=== PATIENT | female | born 1955 | race African-American/Black ===

== ENCOUNTER 2022-07-11 05:53 | Inpatient (IN) | payer MEDICAID ==
[~2022-07-11] VITALS: Ht 167.6 cm; Wt 64.4 kg
[~2022-07-11 05:53] MED LIST: AMLO10TA80 PO; ASPI-1160 PO; ASPI-864 PO; FAMO20TA8 PO; GABA-532 PO; LEVO250T2 PO
[2022-07-11] MEDS ORDERED: MORPHINE SULFATE 4 MG/ML CPJ (NOT FOR IM USE) IV STA (06:13)
[2022-07-11] MEDS ORDERED: ONDANSETRON HCL 4MG/2ML INJ IV STA (06:13)
[2022-07-11] MEDS ORDERED: SODIUM CHLORIDE 0.9% 1,000 ML IV ONE (06:15)
[2022-07-11 06:44] LABS: BASOPHILS % 0.5 % (0.0-2.0); EOSINOPHILS % 2.7 % (0.0-5.0); HEMATOCRIT. 39.5 % (36.0-48.0); HEMOGLOBIN. 12.9 g/dL (12.0-16.0); LYMPHOCYTES % 28.1 % (20.0-50.0); MEAN CORPUSCULAR HEMOGLOBIN 27.4 pg (28.0-32.0); MEAN CORPUSCULAR VOLUME 84.3 fL (81.0-99.0); MONOCYTES % 6.1 % (2.0-8.0); NEUTROPHILS % 62.6 % (40.0-76.0); PLATELET 396 x1000/uL (130-400); RED BLOOD CELL COUNT 4.69 mill/uL (4.2-5.4); RED CELL DISTRIBUTION WIDTH 15.2 % (11.6-14.6)
[2022-07-11 06:54] LABS: CHLORIDE 104 mEq/L (98-107)
[2022-07-11 07:15] LABS: CLARITY URINE CLEAR (CLEAR); COLOR URINE YELLOW (YELLOW); KETONES URINE NEGATIVE (NEGATIVE); LEUKOCYTE ESTERASE URINE NEGATIVE (NEGATIVE); NITRITE URINE NEGATIVE (NEGATIVE); OCCULT BLOOD URINE NEGATIVE (NEGATIVE); PH URINE 7.5 (4.5-8.0); PROTEIN URINE NEGATIVE (NEGATIVE); SPECIFIC GRAVITY URINE 1.016 (1.005-1.030)
[2022-07-11] MEDS ORDERED: POTASSIUM CHLORIDE 10MEQ TABLET SR PO ONE (08:15)
[2022-07-11] MEDS ORDERED: IOHEXOL-300 100 ML BOTTLE ONE (08:29)
[2022-07-11] MEDS ORDERED: METRONIDAZOLE 500 MG PREMIX 100 ML IV ONE (10:15)
[2022-07-11] MEDS ORDERED: LORAZEPAM 0.5MG TABLET PO ONE (10:15)
[2022-07-11] MEDS ORDERED: LEVOFLOXACIN 750MG PREMIX 150 ML IV ONE (10:15)
[2022-07-11] MEDS ORDERED: MORPHINE SULFATE 4 MG/ML CPJ (NOT FOR IM USE) IV ONE (11:00)
[2022-07-11] MEDS ORDERED: IPRATROPIUM/ALBUTEROL 0.5-3(2.5)MG/3ML NEB HHN PRN (12:15)
[2022-07-11] MEDS ORDERED: CLONIDINE 0.1MG TABLET PO PRN (12:15)
[2022-07-11] MEDS ORDERED: NALOXONE HCL 0.4MG/ML VIAL IV PRN (12:30)
[2022-07-11] MEDS: MORPHINE SULFATE 2 MG/ML CPJ (NOT FOR IM USE) IV PRN ×2 (12:58→17:52)
[2022-07-11] MEDS ORDERED: FLUT1BLS9 IH (14:00)
[2022-07-11] MEDS ORDERED: ONDA4TAB50 PO (14:00)
[2022-07-11] MEDS ORDERED: BISACODYL 10MG SUPP PR NR (14:00)
[2022-07-11] MEDS ORDERED: SIMV10TA97 MT (14:00)
[2022-07-11] MEDS: METOCLOPRAMIDE HCL 10MG/2ML VIAL IV SCH ×2 (14:41→17:08)
[2022-07-11] MEDS: SORBITOL 70% SOLN 30ML PO SCH ×2 (14:41→21:15)
[2022-07-11] MEDS: AMLODIPINE 10MG TABLET PO SCH (16:19)
[2022-07-11] MEDS ORDERED: POTASSIUM CHLORIDE 20MEQ TABLET SR PO NR (16:45)
[2022-07-11 17:11] LABS: *AMPHETAMINES SCREEN URINE NEGATIVE (NEGATIVE); *BARBITURATES SCREEN URINE NEGATIVE (NEGATIVE); *BENZODIAZEPINES SCREEN URINE NEGATIVE (NEGATIVE); *COCAINE SCREEN URINE NEGATIVE (NEGATIVE); CANNABINOID URINE SCREEN PRESUMTIVE POSITIVE (NEGATIVE); METHADONE URINE SCREEN NEGATIVE (NEGATIVE); OPIATES URINE SCREEN NEGATIVE (NEGATIVE); PHENCYCLIDINE URINE SCREEN NEGATIVE (NEGATIVE)
[2022-07-11] MEDS: ONDANSETRON HCL 4MG/2ML INJ IV PRN (17:51)
[2022-07-11 18:49] LABS: TOTAL IRON BINDING CAPACITY 334 ug/dL (250-450)
[2022-07-11 19:02] LABS: FERRITIN 142 ng/mL (10-291)
[2022-07-11 19:15] LABS: VITAMIN B12 SERUM 621 pg/mL (211-911)
[2022-07-11 20:00] VITALS: BP 128/77
[2022-07-11 21:38] LABS: PROTHROMBIN TIME 11.2 sec (9.6-11.0)
[2022-07-12] VITALS: BP 150/80
[2022-07-12] MEDS: METOCLOPRAMIDE HCL 10MG/2ML VIAL IV SCH ×4 (00:40→19:05)
[2022-07-12] MEDS: SORBITOL 70% SOLN 30ML PO SCH ×4 (01:19→12:00)
[2022-07-12 04:00] VITALS: BP 128/73
[2022-07-12] MEDS ORDERED: NA PHOS,M-B/NA PHOS,DI-BA ENEMA 118ML PR NR (06:00)
[2022-07-12 07:51] LABS: BASOPHILS % 0.5 % (0.0-2.0); EOSINOPHILS % 1.2 % (0.0-5.0); HEMATOCRIT. 41.4 % (36.0-48.0); HEMOGLOBIN. 13.3 g/dL (12.0-16.0); LYMPHOCYTES % 23.3 % (20.0-50.0); MEAN CORPUSCULAR HEMOGLOBIN 27.2 pg (28.0-32.0); MEAN CORPUSCULAR VOLUME 84.5 fL (81.0-99.0); MONOCYTES % 5.5 % (2.0-8.0); NEUTROPHILS % 69.5 % (40.0-76.0); PLATELET 362 x1000/uL (130-400); RED CELL DISTRIBUTION WIDTH 15.3 % (11.6-14.6)
[2022-07-12 08:00] VITALS: BP 131/61
[2022-07-12 08:43] LABS: CHLORIDE 111 mEq/L (98-107)
[2022-07-12] MEDS: AMLODIPINE 10MG TABLET PO SCH (09:55)
[2022-07-12] MEDS: DEXT 5%/0.9% NACL KCL 20MEQ/L 1,000 ML IV SCH ×2 (11:25→20:00)
[2022-07-12 12:00] VITALS: BP 136/82
[2022-07-12 16:00] VITALS: BP 144/78
[2022-07-12] MEDS ORDERED: PNEUMOCOCCAL 23-VAL P-SAC VAC 0.5 ML IM ONE (16:45)
[2022-07-12 20:00] VITALS: BP 143/86
[2022-07-13] VITALS: BP 120/73
[2022-07-13 04:00] VITALS: BP 125/73
[2022-07-13] MEDS: METOCLOPRAMIDE HCL 10MG/2ML VIAL IV SCH ×4 (06:00→23:32)
[2022-07-13] MEDS: DEXT 5%/0.9% NACL KCL 20MEQ/L 1,000 ML IV SCH ×3 (06:00→19:51)
[2022-07-13 07:43] LABS: CHLORIDE 104 mEq/L (98-107)
[2022-07-13 07:44] LABS: BASOPHILS % 0.7 % (0.0-2.0); EOSINOPHILS % 2.6 % (0.0-5.0); HEMATOCRIT. 41.8 % (36.0-48.0); HEMOGLOBIN. 13.1 g/dL (12.0-16.0); LYMPHOCYTES % 39.4 % (20.0-50.0); MEAN CORPUSCULAR HEMOGLOBIN 27.1 pg (28.0-32.0); MEAN CORPUSCULAR VOLUME 86.2 fL (81.0-99.0); MONOCYTES % 9.7 % (2.0-8.0); NEUTROPHILS % 47.6 % (40.0-76.0); PLATELET 287 x1000/uL (130-400); RED BLOOD CELL COUNT 4.85 mill/uL (4.2-5.4); RED CELL DISTRIBUTION WIDTH 15.1 % (11.6-14.6)
[2022-07-13 08:00] VITALS: BP 165/92
[2022-07-13] MEDS: AMLODIPINE 10MG TABLET PO SCH (09:03)
[2022-07-13] MEDS: POLYETHYLENE GLYCOL 3350 (17GM) 1 DOSE PACK PO SCH (09:04)
[2022-07-13 12:00] VITALS: BP 162/82
[2022-07-13] MEDS: ACETAMINOPHEN 325MG TABLET PO PRN ×2 (13:14→17:29)
[2022-07-13] MEDS ORDERED: SORBITOL 70% SOLN 30ML PO NR (14:30)
[2022-07-13] MEDS ORDERED: METOCLOPRAMIDE HCL 10MG/2ML VIAL IV NR ×2 (14:30→15:00)
[2022-07-13] MEDS ORDERED: BISACODYL 5MG TABLET PO NR (14:30)
[2022-07-13 16:00] VITALS: BP 151/91
[2022-07-13] MEDS ORDERED: ALBUTEROL (0.083%) 2.5MG/3ML NEB HHN PRN (18:30)
[2022-07-13] MEDS ORDERED: IPRATROPIUM BROMIDE (0.02%) 0.5MG/2.5ML NEB HHN PRN (18:30)
[2022-07-13 20:00] VITALS: BP 130/85
[2022-07-14] VITALS: BP 119/67
[2022-07-14] MEDS: DEXT 5%/0.9% NACL KCL 20MEQ/L 1,000 ML IV SCH ×3 (02:28→20:09)
[2022-07-14] MEDS: DIPHENHYDRAMINE 50MG/ML VIAL IV PRN (03:33)
[2022-07-14 04:00] VITALS: BP 143/82
[2022-07-14] MEDS: METOCLOPRAMIDE HCL 10MG/2ML VIAL IV SCH ×2 (05:06→12:42)
[2022-07-14 08:00] VITALS: BP 128/76
[2022-07-14] MEDS: POLYETHYLENE GLYCOL 3350 (17GM) 1 DOSE PACK PO SCH (09:29)
[2022-07-14] MEDS: AMLODIPINE 10MG TABLET PO SCH (09:30)
[2022-07-14 10:41] LABS: BASOPHILS % 0.8 % (0.0-2.0); EOSINOPHILS % 1.9 % (0.0-5.0); HEMATOCRIT. 39.7 % (36.0-48.0); HEMOGLOBIN. 12.8 g/dL (12.0-16.0); LYMPHOCYTES % 39.5 % (20.0-50.0); MEAN CORPUSCULAR HEMOGLOBIN 27.5 pg (28.0-32.0); MEAN CORPUSCULAR VOLUME 85.2 fL (81.0-99.0); MEAN PLATELET VOLUME 9.7 fl (7.4-10.4); MONOCYTES % 8.2 % (2.0-8.0); NEUTROPHILS % 49.6 % (40.0-76.0); PLATELET 314 x1000/uL (130-400); RED BLOOD CELL COUNT 4.66 mill/uL (4.2-5.4); RED CELL DISTRIBUTION WIDTH 14.7 % (11.6-14.6)
[2022-07-14 11:26] LABS: CHLORIDE 111 mEq/L (98-107)
[2022-07-14 12:00] VITALS: BP 140/62
[2022-07-14 16:00] VITALS: BP 138/72
[2022-07-14] MEDS ORDERED: METOCLOPRAMIDE HCL 10MG/2ML VIAL IV NR ×2 (16:30→20:30)
[2022-07-14] MEDS ORDERED: BISACODYL 5MG TABLET PO NR ×2 (16:30→20:30)
[2022-07-14] MEDS ORDERED: SORBITOL 70% SOLN 30ML PO NR ×2 (17:00→21:00)
[2022-07-14] MEDS: ONDANSETRON HCL 4MG/2ML INJ IV PRN (21:24)
[2022-07-15] VITALS: BP 138/95
[2022-07-15 03:03] LABS: CHLORIDE 110 mEq/L (98-107)
[2022-07-15 03:04] LABS: BASOPHILS % 0.5 % (0.0-2.0); EOSINOPHILS % 3.1 % (0.0-5.0); HEMATOCRIT. 40.1 % (36.0-48.0); HEMOGLOBIN. 13.1 g/dL (12.0-16.0); LYMPHOCYTES % 32.7 % (20.0-50.0); MEAN CORPUSCULAR HEMOGLOBIN 27.3 pg (28.0-32.0); MEAN PLATELET VOLUME 8.1 fl (7.4-10.4); MONOCYTES % 9.4 % (2.0-8.0); NEUTROPHILS % 54.3 % (40.0-76.0); PLATELET 376 x1000/uL (130-400); RED BLOOD CELL COUNT 4.77 mill/uL (4.2-5.4); RED CELL DISTRIBUTION WIDTH 14.7 % (11.6-14.6)
[2022-07-15 03:09] LABS: PROTHROMBIN TIME 11.1 sec (9.6-11.0)
[2022-07-15 08:00] VITALS: BP 116/68
[2022-07-15] MEDS: DEXT 5%/0.9% NACL KCL 20MEQ/L 1,000 ML IV SCH ×2 (08:29→18:11)
[2022-07-15] MEDS: POLYETHYLENE GLYCOL 3350 (17GM) 1 DOSE PACK PO SCH ×2 (08:29→08:35)
[2022-07-15] MEDS: AMLODIPINE 10MG TABLET PO SCH (08:29)
[2022-07-15 12:00] VITALS: BP 156/86
[2022-07-15] MEDS ORDERED: PROPOFOL 200MG/20ML VIAL IV ONE ×2 (15:33→15:55)
[2022-07-15] MEDS ORDERED: MIDAZOLAM HCL 2 MG/2 ML VIAL ONE (15:34)
[2022-07-15] MEDS ORDERED: FENTANYL CITRATE/PF 50MCG/ML 2ML VIAL ONE (15:53)
[2022-07-15] MEDS ORDERED: DEXAMETHASONE 4MG/ML 1ML VIAL ONE (15:55)
[2022-07-15] MEDS ORDERED: ONDANSETRON HCL 4MG/2ML INJ ONE (15:55)
[2022-07-15 20:00] VITALS: BP 142/91
[2022-07-16] VITALS: BP 133/72
[2022-07-16 04:00] VITALS: BP 114/60
[2022-07-16] MEDS: DEXT 5%/0.9% NACL KCL 20MEQ/L 1,000 ML IV SCH (04:08)
[2022-07-16 06:56] LABS: BASOPHILS % 0.9 % (0.0-2.0); EOSINOPHILS % 0.6 % (0.0-5.0); HEMATOCRIT. 38.3 % (36.0-48.0); HEMOGLOBIN. 12.4 g/dL (12.0-16.0); LYMPHOCYTES % 29.3 % (20.0-50.0); MEAN CORPUSCULAR HEMOGLOBIN 27.3 pg (28.0-32.0); MEAN CORPUSCULAR VOLUME 84.1 fL (81.0-99.0); MEAN PLATELET VOLUME 8.1 fl (7.4-10.4); MONOCYTES % 7.2 % (2.0-8.0); PLATELET 386 x1000/uL (130-400); RED BLOOD CELL COUNT 4.56 mill/uL (4.2-5.4); RED CELL DISTRIBUTION WIDTH 14.5 % (11.6-14.6)
[2022-07-16 08:00] VITALS: BP 114/70
[2022-07-16 08:25] LABS: CHLORIDE 108 mEq/L (98-107)
[2022-07-16] MEDS: POLYETHYLENE GLYCOL 3350 (17GM) 1 DOSE PACK PO SCH (09:00)
[2022-07-16 12:00] VITALS: BP 124/70
[2022-07-16] MEDS: AMLODIPINE 10MG TABLET PO SCH (12:31)
[2022-07-16] MEDS: DIPHENHYDRAMINE 50MG/ML VIAL IV PRN (12:31)
[2022-07-16 16:00] VITALS: BP 114/82
== END 2022-07-16 16:24 | disposition home or self-care (01) | DRG 248 ==
LOC: ER 05:53 → 6EST 10:22
PROVIDERS: ADMIT Internal Medicine; ATTEND Internal Medicine
PROC: 0DJD8ZZ Inspection of Lower Intestinal Tract, Via Natural or Artificial Opening Endoscopic (ICD-10-PCS; principal; 2022-07-15)
PROC: 0DB78ZX Excision of Stomach, Pylorus, Via Natural or Artificial Opening Endoscopic, Diagnostic (ICD-10-PCS; 2022-07-15)
DX: A04.8 Other specified bacterial intestinal infections (principal); B96.81 Helicobacter pylori [H. pylori] as the cause of diseases classified elsewhere; K31.A0 Gastric intestinal metaplasia, unspecified; E78.00 Pure hypercholesterolemia, unspecified; E78.5 Hyperlipidemia, unspecified; K59.00 Constipation, unspecified; E87.6 Hypokalemia; I10 Essential (primary) hypertension; Z20.822 Contact with and (suspected) exposure to COVID-19; J45.909 Unspecified asthma, uncomplicated; I25.2 Old myocardial infarction; Z86.73 Personal history of transient ischemic attack (TIA), and cerebral infarction without residual deficits; Z87.891 Personal history of nicotine dependence; Z88.0 Allergy status to penicillin
CPT/HCPCS: 36415; 74018; 74177; 80048; 80053; 80305; 81003; 82378; 82607; 82728; 82746; 83540; 83550; 83735; 83880; 85025; 85044; 87426; 88305; 93005; 93970; 99285; C1893; J1100; J1200; J1956; J2250; J2270; J2405; J2704; J2765; J3010; J3490; J7030; Q9967

== ENCOUNTER 2023-02-20 10:58 | Emergency (ER) | payer MEDICAID ==
[~2023-02-20] VITALS: Ht 160 cm; Wt 75.0 kg
[~2023-02-20 10:58] MED LIST changes: -ASPI-1160 PO; +CLIN-194 MT; +FLUT1BLS9 IH; -LEVO250T2 PO; +ONDA4TAB50 PO; +SIMV10TA97 MT
[2023-02-20 11:27] VITALS: BP 135/85; PULSE 98; RESP 18; TEMP 98; O2SAT 97
[2023-02-20] MEDS ORDERED: ACETAMINOPHEN 500MG TABLET PO ONE (12:15)
[2023-02-20] MEDS ORDERED: ACETAMINOPHEN 500MG TABLET PO NR (15:03)
[2023-02-20] MEDS ORDERED: NITR-87 MT (18:23)
[2023-02-20] MEDS ORDERED: ACET-2708 MT (18:23)
== END 2023-02-20 20:05 | disposition home or self-care (01) ==
LOC: ER 11:08
DX: R68.84 Jaw pain (principal); R30.0 Dysuria; F12.10 Cannabis abuse, uncomplicated; E78.00 Pure hypercholesterolemia, unspecified; I25.2 Old myocardial infarction; I10 Essential (primary) hypertension; Z79.82 Long term (current) use of aspirin; Z88.0 Allergy status to penicillin; Z79.899 Other long term (current) drug therapy; Z86.73 Personal history of transient ischemic attack (TIA), and cerebral infarction without residual deficits; Z98.890 Other specified postprocedural states
CPT/HCPCS: 70486; 99284

== ENCOUNTER 2023-03-23 08:48 | Emergency (ER) | payer MEDICAID ==
[~2023-03-23] VITALS: Ht 165.1 cm; Wt 65.0 kg
[~2023-03-23 08:48] MED LIST changes: +ACET-2708 MT; +NITR-87 MT
[2023-03-23 08:59] VITALS: O2SAT 98
[2023-03-23] MEDS ORDERED: ONDANSETRON HCL 4MG/2ML INJ IV STA (09:19)
[2023-03-23] MEDS ORDERED: KETOROLAC 30MG/ML VIAL IV STA (09:19)
[2023-03-23] MEDS ORDERED: SODIUM CHLORIDE 0.9% 1,000 ML IV ONE (10:00)
[2023-03-23 10:35] LABS: BASOPHILS % 0.5 % (0.0-2.0); EOSINOPHILS % 0.6 % (0.0-5.0); HEMATOCRIT. 39.3 % (36.0-48.0); HEMOGLOBIN. 12.5 g/dL (12.0-16.0); LYMPHOCYTES % 22.7 % (20.0-50.0); MEAN CORPUSCULAR HEMOGLOBIN 26.7 pg (28.0-32.0); MEAN CORPUSCULAR HGB CONC 31.9 g/dL (31.0-37.0); MEAN CORPUSCULAR VOLUME 83.7 fL (81.0-99.0); MEAN PLATELET VOLUME 7.8 fl (7.4-10.4); MONOCYTES % 7.5 % (2.0-8.0); NEUTROPHILS % 68.7 % (40.0-76.0); PLATELET 398 x1000/uL (130-400); RED CELL DISTRIBUTION WIDTH 15.1 % (11.6-14.6); WHITE BLOOD COUNT 7.6 x1000/uL (4.5-11.0)
[2023-03-23 10:43] LABS: CHLORIDE 109 mEq/L (98-107); POTASSIUM 3.5 mEq/L (3.5-5.1); SODIUM 140 mEq/L (136-145)
[2023-03-23 10:46] LABS: PROTHROMBIN TIME 10.8 sec (9.6-11.0)
[2023-03-23 10:50] LABS: ALANINE AMINOTRANSFERASE 21 IU/L (13-61); ASPARTATE AMINOTRANSFERASE 17 IU/L (15-37); BILIRUBIN TOTAL 0.5 mg/dL (0.1-1.0); CALCIUM 9.1 mg/dL (8.5-10.1); CARBON DIOXIDE 26 mEq/L (21-32); CREATININE 0.7 mg/dL (0.6-1.3); ETHANOL BLOOD < 10 mg/dL (<10); GLUCOSE 91 mg/dL (70-105); PROTEIN TOTAL 8.3 g/dL (6.0-8.3); UREA NITROGEN BLOOD 11 mg/dL (7-21)
[2023-03-23 13:18] LABS: CLARITY URINE CLEAR (CLEAR); COLOR URINE YELLOW (YELLOW); GLUCOSE URINE NEGATIVE (NEGATIVE); KETONES URINE 2+ (NEGATIVE); LEUKOCYTE ESTERASE URINE TRACE (NEGATIVE); NITRITE URINE NEGATIVE (NEGATIVE); OCCULT BLOOD URINE TRACE (NEGATIVE); PH URINE 7.5 (4.5-8.0); PROTEIN URINE NEGATIVE (NEGATIVE); SPECIFIC GRAVITY URINE 1.014 (1.005-1.030); UROBILINOGEN URINE 0.2 E.U./dL (0.2-1.0)
[2023-03-23] MEDS ORDERED: DOCU-138 MT (13:20)
[2023-03-23] MEDS ORDERED: IBUP-2029 MT (13:20)
[2023-03-23] MEDS ORDERED: SENN-257 MT (13:20)
[2023-03-23 13:21] LABS: SQUAMOUS EPITHELIAL CELL URINE 1+ /lpf (RARE/1+); YEAST URINE NONE SEEN
[2023-03-23 13:40] LABS: BACTERIA URINE 2+
[2023-03-23] MEDS ORDERED: CEPH500C2 MT (13:48)
[2023-03-23 13:56] VITALS: BP 150/92; PULSE 92; RESP 15; TEMP 98.1
[2023-03-23 15:00] LABS: TRICHOMONAS URINE RARE
[2023-03-25] MEDS ORDERED: P20 MT (11:56)
[2023-03-25] MEDS ORDERED: LEVO-65 MT (11:56)
== END 2023-03-23 14:54 | disposition home or self-care (01) ==
LOC: ER 08:48
DX: K52.9 Noninfective gastroenteritis and colitis, unspecified (principal); N39.0 Urinary tract infection, site not specified; K59.00 Constipation, unspecified; F12.90 Cannabis use, unspecified, uncomplicated; J45.909 Unspecified asthma, uncomplicated; E78.00 Pure hypercholesterolemia, unspecified; I11.9 Hypertensive heart disease without heart failure; Z86.73 Personal history of transient ischemic attack (TIA), and cerebral infarction without residual deficits
CPT/HCPCS: 80053; 81003; 80320; 83605; 83690; 85025; 85610; 36415; 74176; 96361; 96374; 96375; 99285; J1885; J2405; J7030; Z7610 ×3; G0480

== ENCOUNTER 2023-04-11 16:31 | Emergency (ER) | payer MEDICAID ==
[~2023-04-11] VITALS: Ht 165.1 cm; Wt 66.0 kg
[~2023-04-11 16:31] MED LIST changes: -CLIN-194 MT; +DOCU-138 MT; +LEVO-65 MT; -NITR-87 MT; -ONDA4TAB50 PO; +P20 MT; -SIMV10TA97 MT
[2023-04-11 16:40] VITALS: TEMP 97.6; O2SAT 99
[2023-04-11] MEDS ORDERED: ONDANSETRON HCL 4MG/2ML INJ IV STA (16:44)
[2023-04-11] MEDS ORDERED: KETOROLAC 30MG/ML VIAL IV STA (16:44)
[2023-04-11] MEDS ORDERED: MINERAL OIL ENEMA 133ML PR ONE (16:45)
[2023-04-11] MEDS ORDERED: SODIUM CHLORIDE 0.9% 1,000 ML IV ONE (16:45)
[2023-04-11] MEDS ORDERED: PANTOPRAZOLE SODIUM 40 MG/VIAL IV ONE (17:00)
[2023-04-11] MEDS ORDERED: MORPHINE SULFATE 2 MG/ML CPJ (NOT FOR IM USE) IV ONE (17:00)
[2023-04-11] MEDS ORDERED: MAGNESIUM/ALUMINUM HYDROXIDE/SIMETHICONE 30ML UDC PO ONE (17:00)
[2023-04-11 17:57] VITALS: BP 160/96; PULSE 73; RESP 16
[2023-04-11 18:03] LABS: BASOPHILS % 0.6 % (0.0-2.0); EOSINOPHILS % 2.1 % (0.0-5.0); HEMATOCRIT. 37.5 % (36.0-48.0); HEMOGLOBIN. 12.1 g/dL (12.0-16.0); MEAN CORPUSCULAR HEMOGLOBIN 27.8 pg (28.0-32.0); MEAN CORPUSCULAR HGB CONC 32.3 g/dL (31.0-37.0); MEAN CORPUSCULAR VOLUME 85.9 fL (81.0-99.0); MEAN PLATELET VOLUME 7.8 fl (7.4-10.4); MONOCYTES % 7.8 % (2.0-8.0); NEUTROPHILS % 63.5 % (40.0-76.0); PLATELET 355 x1000/uL (130-400); RED BLOOD CELL COUNT 4.36 mill/uL (4.2-5.4); WHITE BLOOD COUNT 6.8 x1000/uL (4.5-11.0)
[2023-04-11 18:19] LABS: ALANINE AMINOTRANSFERASE 12 IU/L (10-49); ASPARTATE AMINOTRANSFERASE 15 IU/L (<34); BILIRUBIN TOTAL 0.5 mg/dL (0.1-1.0); CARBON DIOXIDE 26 mEq/L (21-32); CHLORIDE 112 mEq/L (98-107); CREATININE 0.9 mg/dL (0.6-1.0); GLUCOSE 89 mg/dL (70-105); POTASSIUM 3.6 mEq/L (3.5-5.1); PROTEIN TOTAL 7.2 g/dL (6.0-8.3); SODIUM 145 mEq/L (136-145); UREA NITROGEN BLOOD 10 mg/dL (9-23)
[2023-04-11 21:12] LABS: *AMPHETAMINES SCREEN URINE NEGATIVE (NEGATIVE); *BARBITURATES SCREEN URINE NEGATIVE (NEGATIVE); *BENZODIAZEPINES SCREEN URINE NEGATIVE (NEGATIVE); *COCAINE SCREEN URINE NEGATIVE (NEGATIVE); CANNABINOID URINE SCREEN PRESUMPTIVE POSITIVE (NEGATIVE); ECSTASY MDMA SCREEN URINE NEGATIVE (NEGATIVE); METHADONE URINE SCREEN Neg (NEGATIVE); OPIATES URINE SCREEN NEGATIVE (NEGATIVE); PHENCYCLIDINE URINE SCREEN NEGATIVE (NEGATIVE)
[2023-04-11 21:41] LABS: CLARITY URINE CLEAR (CLEAR); COLOR URINE YELLOW (YELLOW); GLUCOSE URINE NEGATIVE (NEGATIVE); KETONES URINE NEGATIVE (NEGATIVE); PH URINE 5.5 (4.5-8.0); PROTEIN URINE NEGATIVE (NEGATIVE); SPECIFIC GRAVITY URINE >=1.030 (1.005-1.030)
[2023-04-11 21:42] LABS: LEUKOCYTE ESTERASE URINE 1+ (NEGATIVE); NITRITE URINE NEGATIVE (NEGATIVE); OCCULT BLOOD URINE 2+ (NEGATIVE); UROBILINOGEN URINE 0.2 E.U./dL (0.2-1.0)
[2023-04-11 22:16] LABS: BACTERIA URINE 2+; SQUAMOUS EPITHELIAL CELL URINE FEW /lpf (RARE/1+)
[2023-04-11] MEDS ORDERED: CEFTRIAXONE 1GM PREMIX 50 ML IV ONE (22:30)
[2023-04-11] MEDS ORDERED: CEFP200T13 MT (22:32)
[2023-04-11] MEDS ORDERED: LACT1CAP78 MT (22:32)
== END 2023-04-12 04:51 | disposition home or self-care (01) ==
LOC: ER 16:31
DX: R10.84 Generalized abdominal pain (principal); E78.00 Pure hypercholesterolemia, unspecified; J45.909 Unspecified asthma, uncomplicated; F12.10 Cannabis abuse, uncomplicated; I25.2 Old myocardial infarction; I10 Essential (primary) hypertension; Z88.0 Allergy status to penicillin; Z86.73 Personal history of transient ischemic attack (TIA), and cerebral infarction without residual deficits
CPT/HCPCS: 80053; 80305; 81003; 83690; 85025; 36415; 74176; 96361; 96365; 96375; 99285; J0696; J2405; C9113; J2270; J7030; Z7610 ×4

== ENCOUNTER 2024-02-10 14:23 | Emergency (ER) | payer MEDICAID ==
[~2024-02-10] VITALS: Ht 165.1 cm; Wt 69.0 kg
[~2024-02-10 14:23] MED LIST changes: +CEFP200T13 MT; +LACT1CAP78 MT; +NITR-87 MT
[2024-02-10 14:33] VITALS: O2SAT 100
[2024-02-10 15:13] LABS: CHLORIDE 109 mEq/L (98-107); SODIUM 144 mEq/L (136-145)
[2024-02-10 15:14] LABS: CALCIUM 9.4 mg/dL (8.7-10.4); CARBON DIOXIDE 29 mEq/L (21-32)
[2024-02-10 15:16] LABS: BASOPHILS % 0.9 % (0.0-2.0); EOSINOPHILS % 4.1 % (0.0-5.0); HEMATOCRIT. 40.1 % (36.0-48.0); HEMOGLOBIN. 12.6 g/dL (12.0-16.0); LYMPHOCYTES % 42.6 % (20.0-50.0); MEAN CORPUSCULAR HEMOGLOBIN 27.1 pg (28.0-32.0); MEAN CORPUSCULAR HGB CONC 31.5 g/dL (31.0-37.0); MEAN PLATELET VOLUME 8.5 fl (7.4-10.4); MONOCYTES % 8.3 % (2.0-8.0); NEUTROPHILS % 44.1 % (40.0-76.0); PLATELET 317 x1000/uL (130-400); RED BLOOD CELL COUNT 4.66 mill/uL (4.2-5.4); WHITE BLOOD COUNT 6.3 x1000/uL (4.5-11.0)
[2024-02-10 15:19] LABS: CREATININE 0.9 mg/dL (0.6-1.0); GLUCOSE 90 mg/dL (70-105); UREA NITROGEN BLOOD 16 mg/dL (9-23)
[2024-02-10 15:21] LABS: ALANINE AMINOTRANSFERASE 16 IU/L (10-49); ALBUMIN 4.3 g/dL (3.2-4.8); ASPARTATE AMINOTRANSFERASE 18 IU/L (<34); BILIRUBIN DIRECT 0.1 mg/dL (<=3.0); BILIRUBIN TOTAL 0.4 mg/dL (0.1-1.0)
[2024-02-10 15:27] LABS: TROPONIN I HIGH SENSITIVITY < 4 ng/L (3.0-34)
[2024-02-10 19:28] LABS: CLARITY URINE CLEAR (CLEAR); COLOR URINE YELLOW (YELLOW); GLUCOSE URINE NEGATIVE (NEGATIVE); KETONES URINE NEGATIVE (NEGATIVE); LEUKOCYTE ESTERASE URINE 1+ (NEGATIVE); NITRITE URINE NEGATIVE (NEGATIVE); OCCULT BLOOD URINE NEGATIVE (NEGATIVE); PH URINE 5.5 (4.5-8.0); PROTEIN URINE NEGATIVE (NEGATIVE); SPECIFIC GRAVITY URINE 1.022 (1.005-1.030); UROBILINOGEN URINE 0.2 E.U./dL (0.2-1.0)
[2024-02-10 20:24] LABS: BACTERIA URINE TRACE; SQUAMOUS EPITHELIAL CELL URINE FEW /lpf (RARE/1+)
[2024-02-10] MEDS ORDERED: IBUP-2029 MT (20:28)
[2024-02-10] MEDS ORDERED: METH-653 MT (20:28)
[2024-02-10] MEDS ORDERED: NITR-87 MT (20:28)
[2024-02-10 21:05] VITALS: BP 130/89; PULSE 70; RESP 18; TEMP 36.72516; O2SAT 100
== END 2024-02-10 21:15 | disposition home or self-care (01) ==
LOC: ER 14:32
DX: S33.5XXA Sprain of ligaments of lumbar spine, initial encounter (principal); N39.0 Urinary tract infection, site not specified; J45.909 Unspecified asthma, uncomplicated; E78.00 Pure hypercholesterolemia, unspecified; I11.9 Hypertensive heart disease without heart failure; I25.2 Old myocardial infarction; F12.90 Cannabis use, unspecified, uncomplicated; Z86.73 Personal history of transient ischemic attack (TIA), and cerebral infarction without residual deficits; Z88.0 Allergy status to penicillin; Z79.899 Other long term (current) drug therapy; X58.XXXA Exposure to other specified factors, initial encounter; Y93.89 Activity, other specified; Y92.89 Other specified places as the place of occurrence of the external cause; Y99.8 Other external cause status
CPT/HCPCS: 36415; 76700; 80048; 80076; 81003; 84484; 85025; 99284

== ENCOUNTER 2024-02-14 11:49 | Emergency (ER) | payer MEDICAID ==
[~2024-02-14] VITALS: Ht 165.1 cm; Wt 66.0 kg
[~2024-02-14 11:49] MED LIST changes: +IBUP-2029 MT; +METH-653 MT
[2024-02-14 11:53] VITALS: O2SAT 98
[2024-02-14 16:07] LABS: CLARITY URINE CLEAR (CLEAR); COLOR URINE YELLOW (YELLOW); GLUCOSE URINE NEGATIVE (NEGATIVE); KETONES URINE 2+ (NEGATIVE); LEUKOCYTE ESTERASE URINE NEGATIVE (NEGATIVE); NITRITE URINE NEGATIVE (NEGATIVE); OCCULT BLOOD URINE NEGATIVE (NEGATIVE); PH URINE 6.5 (4.5-8.0); PROTEIN URINE NEGATIVE (NEGATIVE); SPECIFIC GRAVITY URINE 1.014 (1.005-1.030); UROBILINOGEN URINE 0.2 E.U./dL (0.2-1.0)
[2024-02-14] MEDS: ACETAMINOPHEN 325MG TABLET PO ONE (16:27)
[2024-02-14] MEDS: LEVOFLOXACIN 500MG TABLET PO ONE (16:27)
[2024-02-14] MEDS: CLONIDINE 0.1MG TABLET PO ONE (16:27)
[2024-02-14 16:50] LABS: BASOPHILS % 0.8 % (0.0-2.0); EOSINOPHILS % 1.4 % (0.0-5.0); HEMATOCRIT. 40.2 % (36.0-48.0); HEMOGLOBIN. 12.9 g/dL (12.0-16.0); LYMPHOCYTES % 36.2 % (20.0-50.0); MEAN CORPUSCULAR HEMOGLOBIN 27.7 pg (28.0-32.0); MEAN CORPUSCULAR HGB CONC 32.2 g/dL (31.0-37.0); MEAN CORPUSCULAR VOLUME 86.2 fL (81.0-99.0); MONOCYTES % 11.8 % (2.0-8.0); NEUTROPHILS % 49.8 % (40.0-76.0); PLATELET 286 x1000/uL (130-400); RED BLOOD CELL COUNT 4.66 mill/uL (4.2-5.4); RED CELL DISTRIBUTION WIDTH 15.3 % (11.6-14.6)
[2024-02-14 16:53] LABS: CHLORIDE 106 mEq/L (98-107); POTASSIUM 3.7 mEq/L (3.5-5.1); SODIUM 139 mEq/L (136-145)
[2024-02-14 16:54] LABS: CARBON DIOXIDE 25 mEq/L (21-32)
[2024-02-14 16:55] LABS: CALCIUM 9.2 mg/dL (8.7-10.4)
[2024-02-14 16:59] LABS: CREATININE 0.8 mg/dL (0.6-1.0); GLUCOSE 84 mg/dL (70-105)
[2024-02-14 17:00] LABS: UREA NITROGEN BLOOD 10 mg/dL (9-23)
[2024-02-14 17:01] LABS: ALANINE AMINOTRANSFERASE 20 IU/L (10-49); ALBUMIN 4.1 g/dL (3.2-4.8); ASPARTATE AMINOTRANSFERASE 24 IU/L (<34)
[2024-02-14 17:02] LABS: BILIRUBIN TOTAL 0.8 mg/dL (0.1-1.0); PROTEIN TOTAL 7.3 g/dL (6.0-8.3)
[2024-02-14] MEDS ORDERED: ONDA-239 PO (19:16)
[2024-02-14] MEDS ORDERED: NAPR-679 MT (19:16)
[2024-02-14 19:31] VITALS: BP 119/64; PULSE 65; RESP 15; TEMP 36.89184; O2SAT 99
== END 2024-02-14 19:43 | disposition home or self-care (01) ==
LOC: ER 13:30
DX: R10.30 Lower abdominal pain, unspecified (principal); R11.2 Nausea with vomiting, unspecified; I10 Essential (primary) hypertension; I49.9 Cardiac arrhythmia, unspecified; I25.2 Old myocardial infarction; E78.00 Pure hypercholesterolemia, unspecified; J45.909 Unspecified asthma, uncomplicated; Z79.899 Other long term (current) drug therapy; Z79.82 Long term (current) use of aspirin; Z86.73 Personal history of transient ischemic attack (TIA), and cerebral infarction without residual deficits; Z88.0 Allergy status to penicillin; Z79.51 Long term (current) use of inhaled steroids
CPT/HCPCS: 80053; 81003; 83690; 85025; 36415; 99285; Z7610 ×2

== ENCOUNTER 2025-01-17 13:14 | Emergency (ER) | payer MEDICAID ==
[~2025-01-17] VITALS: Ht 160 cm; Wt 63.5 kg
[~2025-01-17 13:14] MED LIST changes: +GABA-1180 PO; -GABA-532 PO; +IBUP-1455 MT; -IBUP-2029 MT; +NAPR-679 MT; +ONDA-239 PO
[2025-01-17 13:16] VITALS: O2SAT 100
[2025-01-17 14:16] LABS: BASOPHILS % 0.9 % (0.0-2.0); EOSINOPHILS % 0.5 % (0.0-5.0); HEMATOCRIT. 38.7 % (36.0-48.0); HEMOGLOBIN. 12.6 g/dL (12.0-16.0); LYMPHOCYTES % 28.0 % (20.0-50.0); MEAN PLATELET VOLUME 8.0 fl (7.4-10.4); MONOCYTES % 8.2 % (2.0-8.0); NEUTROPHILS % 62.4 % (40.0-76.0); PLATELET 360 x1000/uL (130-400); RED BLOOD CELL COUNT 4.68 mill/uL (4.2-5.4); RED CELL DISTRIBUTION WIDTH 14.4 % (11.6-14.6)
[2025-01-17 14:28] LABS: CREATININE 0.8 mg/dL (0.6-1.0); ETHANOL BLOOD < 10 mg/dL (<10); UREA NITROGEN BLOOD 12 mg/dL (9-23)
[2025-01-17 14:30] LABS: ASPARTATE AMINOTRANSFERASE 17 IU/L (<34); BILIRUBIN DIRECT 0.2 mg/dL (<=3.0); BILIRUBIN TOTAL 0.9 mg/dL (0.1-1.0); PROTEIN TOTAL 7.3 g/dL (6.0-8.3)
[2025-01-17] MEDS: KETOROLAC 15MG/ML VIAL IV ONE (14:37)
[2025-01-17] MEDS: FAMOTIDINE 20MG/2ML VIAL IV ONE (14:37)
[2025-01-17] MEDS: SODIUM CHLORIDE 0.9% 1,000 ML IV ONE (14:37)
[2025-01-17] MEDS ORDERED: PRED5TAB MT (18:19)
[2025-01-17] MEDS ORDERED: P20 MT (18:19)
[2025-01-17 18:28] VITALS: BP 112/61; PULSE 69; RESP 19; TEMP 36.9; O2SAT 100
== END 2025-01-17 18:32 | disposition home or self-care (01) ==
LOC: ER 13:20
DX: K52.9 Noninfective gastroenteritis and colitis, unspecified (principal); E11.9 Type 2 diabetes mellitus without complications; E78.00 Pure hypercholesterolemia, unspecified; I10 Essential (primary) hypertension; I25.2 Old myocardial infarction; J45.909 Unspecified asthma, uncomplicated; Z55.6 Problems related to health literacy; Z79.1 Long term (current) use of non-steroidal anti-inflammatories (NSAID); Z79.51 Long term (current) use of inhaled steroids; Z79.52 Long term (current) use of systemic steroids; Z79.82 Long term (current) use of aspirin; Z79.899 Other long term (current) drug therapy; Z86.73 Personal history of transient ischemic attack (TIA), and cerebral infarction without residual deficits; Z88.0 Allergy status to penicillin
CPT/HCPCS: 80076; 80048; 80320; 83690; 85025; 36415; 74177; 96361; 96374; 96375; 99285; J1308; J1885; J7030; Z7610; G0480